=== PATIENT | male | born 1965 | race Caucasian/White ===

== ENCOUNTER 2018-06-24 19:17 | Emergency (ER) | payer MEDICAID, OTHER ==
[2018-06-24 19:27] VITALS: TEMP 97.9
[2018-06-24] MEDS ORDERED: Nitroglycerin 2% Ointment Foilpak UD TOP STA (19:36)
[2018-06-24 19:54] LABS: HEMOGLOBIN 17.3 g/dL (14.0-18.0); MEAN CELL VOLUME 80.7 fl (80.0-105.0); MEAN CORPUSCULAR HEMOGLOBIN 29.2 pg (25.0-35.0); MEAN CORPUSCULAR HGB CONC 36.2 g/dl (31.0-37.0); MEAN PLATELET VOLUME 9.3 fl (7.0-11.0); RBC 5.92 10^6/uL (3.5-6.1); RED CELL DISTRIBUTION WIDTH 12.9 % (11.5-14.5); WHITE BLOOD COUNT 8.7 10^3/uL (4.5-11.0)
[2018-06-24 19:59] LABS: ALB/GLOB RATIO 1.3 (1.1-1.8); ALBUMIN 4.4 g/dL (3.0-4.8); ALT/SGPT 35 U/L (7-56); AST/SGOT 32 U/L (17-59); BLOOD UREA NITROGEN 12 mg/dL (7-21); CALCIUM 9.4 mg/dL (8.4-10.5); GFR NON-AFRICAN AMERICAN > 60
[2018-06-24 20:00] LABS: INR 1.03; PROTHROMBIN TIME 11.7 SECONDS (9.4-12.5)
[2018-06-24 20:10] LABS: TROPONIN I < 0.01 ng/mL
--- NOTE | 2018-06-24 20:16 | ED PDOC ---
Arrival/HPI - General Chief Complaint: Chest Pain Time Seen by Provider: 06/24/18 19:22 Historian: Patient - History of Present Illness Narrative History of Present Illness (Text): 06/24/18 20:13 Patient is a 53 year old male whose past medical history includes hypertension(takes Amlodipine), who presents to the Emergency department complaining of exertional chest pain. Patient reports that he has been experiencing intermittent chest pain, which has worsened today in frequency. He admits to occasional dizziness. Of note patient is a 1 pack per day smoker. Patient denies any sob, fever, chills, cough or any other complaints. Time/Duration: Other (worsened today) Symptom Onset: Gradual Symptom Course: Worsening Context: Exertion Past Medical History - Provider Review Nursing Documentation Reviewed: Yes - Cardiac Hx Cardiac Disorders: Yes Hx Hypertension: Yes - Psychiatric Hx Substance Use: No Family/Social History - Physician Review Nursing Documentation Reviewed: Yes Family/Social History: No Known Family HX Smoking Status: Heavy Smoker > 10 Cigarettes Daily Hx Alcohol Use: No Hx Substance Use: No Allergies/Home Meds Allergies/Adverse Reactions: Allergies No Known Allergies Allergy (Verified 06/24/18 19:21) Home Medications: Home Meds Medication Instructions Recorded Confirmed Dicyclomine [Bentyl] 20 mg PO BID 06/24/18 06/24/18 amLODIPine [Norvasc] 5 mg PO DAILY 06/24/18 06/24/18 Review of Systems - Physician Review All systems were reviewed & negative as marked: Yes - Review of Systems Constitutional: absent: Fevers Respiratory: absent: SOB, Cough Cardiovascular: Chest Pain Neurological: Dizziness Physical Exam Vital Signs Reviewed: Yes Vital Signs Temp Pulse Resp BP Pulse Ox 06/24/18 19:56 75 12 156/95 H 96 06/24/18 19:27 97.9 F 79 18 177/99 H 97 Temperature: Afebrile Blood Pressure: Hypertensive Pulse: Regular Respiratory Rate: Normal Appearance: Positive for: Well-Appearing Mental Status: Positive for: Alert and Oriented X 3 - Systems Exam Head: Present: Atraumatic, Normocephalic Pupils: Present: PERRL Extroacular Muscles: Present: EOMI Conjunctiva: Present: Normal Mouth: Present: Moist Mucous Membranes Neck: Present: Normal Range of Motion Respiratory/Chest: Present: Clear to Auscultation, Good Air Exchange. No: Respiratory Distress, Accessory Muscle Use Cardiovascular: Present: Regular Rate and Rhythm, Normal S1, S2. No: Murmurs Abdomen: No: Tenderness, Distention, Peritoneal Signs Back: Present: Normal Inspection Upper Extremity: Present: Normal Inspection. No: Cyanosis, Edema Lower Extremity: Present: Normal Inspection. No: Edema Neurological: Present: GCS=15, CN II-XII Intact, Speech Normal Skin: Present: Warm, Dry, Normal Color. No: Rashes Psychiatric: Present: Alert, Oriented x 3, Normal Insight, Normal Concentration Medical Decision Making ED Course and Treatment: 06/24/18 20:17 Impression: 53 year old male c/o exertional chest pain and occasional dizziness. Plan: -- EKG -- Chest X-ray -- Labs, cardiac enzymes -- Aspirin -- Nitroglycerin -- Reassess and disposition Prior Visits: Notes and results from previous visits were reviewed. Progress Notes: 06/24/18 19:24 Reviewed EKG, NSR at [address]-segment elevations or depressions, no T-wave inversions, normal intervals. 06/24/18 21:10 Chest X-ray reviewed, shows no acute processes. 06/24/18 21:20 Discussed plan with patient, patient was offered admission to the hospital for further observation of symptoms. The patient declines admission, and wishes to leave the Emergency Department. This action is against my medical advice to the patient and the decision was made with informed refusal. The patient was told that admission is necessary and a full explanation of the rationale was given. The risks of leaving were explained to the patient and include, but are not limited to, worsening of known or currently unknown conditions, permanent disability and from undiagnosed or untreated conditions The patient has the capacity to make this informed decision and understands the clinical situation and my explanation of the risks of leaving. The patient voluntarily accepts these risks, and a signed AMA form documenting our conversation was obtained. The patient was given the opportunity to ask questions and reconsider. The patient was encouraged to return to the Emergency Department at any time for further care. - Lab Interpretations Lab Results: 06/24/18 19:35 06/24/18 19:35 Lab Results 06/24/18 19:35: WBC 8.7, RBC 5.92, Hgb 17.3, Hct 47.8, MCV 80.7, MCH 29.2, MCHC 36.2, RDW 12.9, Plt Count 232, MPV 9.3 06/24/18 19:35: Sodium 140, Potassium 4.0, Chloride 105, Carbon Dioxide 25, Anion Gap 14, BUN 12, Creatinine 0.9, Est GFR ( Amer) > 60, Est GFR (Non- Af Amer) > 60, Random Glucose 92, Calcium 9.4, Total Bilirubin 0.7, AST 32, ALT 35, Alkaline Phosphatase 81, Lactate Dehydrogenase 435, Total Creatine Kinase 191, Troponin I < 0.01, Total Protein 7.7, Albumin 4.4, Globulin 3.3, Albumin/Globulin Ratio 1.3 06/24/18 19:35: PT 11.7, INR 1.03, APTT 29.0 - RAD Interpretation Radiology Orders: 06/24/18 19:34 CHEST PORTABLE [RAD] [place] Route Driver: ED Physician - EKG Interpretation Interpreted by ED Physician: Yes Type: 12 lead EKG - Medication Orders Current Medication Orders: Discontinued Medications Aspirin (Aspirin) 325 mg PO ONCE STA Stop: 06/24/18 19:37 Last Admin: 06/24/18 19:40 Dose: 325 mg Nitroglycerin (Nitro-Bid 2% Oint) 1 ea TOP ONCE STA Stop: 06/24/18 19:37 Last Admin: 06/24/18 19:40 Dose: 1 ea - Scribe Statement The provider has reviewed the documentation as recorded by the Scribe Cricket Danielle Provider Scribe Attestation: All medical record entries made by the Scribe were at my direction and personally dictated by me. I have reviewed the chart and agree that the record accurately reflects my personal performance of the history, physical exam, [facility] decision making, and the department course for this patient. I have also personally directed, reviewed, and agree with the discharge instructions and disposition. Disposition/Present on Arrival - Present on Arrival Any Indicators Present on Arrival: No History of DVT/PE: No History of Uncontrolled Diabetes: No Urinary Catheter: No History of Decub. Ulcer: No History Surgical Site Infection Following: None - Disposition Have Diagnosis and Disposition been Completed?: Yes Diagnosis: Chest pain Disposition: AGAINST MEDICAL ADVICE Disposition Time: 21:30 Condition: GOOD Discharge Instructions (ExitCare): Chest Pain (ED) Forms: Pint Please ([employer])
[2018-06-24 21:36] VITALS: BP 141/94; PULSE 73; RESP 22; O2SAT 97
--- NOTE | 2018-06-25 07:15 | RAD ---
Date of service: 06/24/2018 HISTORY: pain COMPARISON: No prior. FINDINGS: LUNGS: No active pulmonary disease. PLEURA: No significant pleural effusion identified, no pneumothorax apparent. CARDIOVASCULAR: No aortic atherosclerotic calcification present. Normal cardiac size. No pulmonary vascular congestion. OSSEOUS STRUCTURES: No significant abnormalities. VISUALIZED UPPER ABDOMEN: Normal. OTHER FINDINGS: None. IMPRESSION: No active disease.
--- NOTE | 2018-06-25 18:12 | CARD ---
APPROVED REPORT Date of service: 06/24/2018 EKG Measurement Heart [id number] <Conclusion> Normal sinus rhythm Normal ECG
== END 2018-06-24 21:28 | disposition left against medical advice (07) ==
LOC: ED 19:17
DX: R07.9 Chest pain, unspecified (principal); I10 Essential (primary) hypertension; F17.210 Nicotine dependence, cigarettes, uncomplicated